=== PATIENT | male | born 1980 | race Caucasian/White ===

== ENCOUNTER 2018-09-30 12:41 | Emergency (ER) | payer OTHER ==
--- NOTE | 2018-09-30 13:03 | ED PDOC ---
Arrival/HPI - General Historian: Patient - History of Present Illness Narrative History of Present Illness (Text): 09/30/18 13:01 37 y/o male, no significant pmh, last tetanus under 6 years ago, nkda, c/o right nose bleeding on the rt. nostril started this morning. Pt. stated that he started to have nose bleeding after picking, been bleeding and admits swallow the blood, feel nauseous and been vomiting, not on antiplatete or anticoagulant, no fall or trauma, no pain, no numbness or tingling, no night sweat, no rash, no other medical or psychological complaints. Past Medical History - Provider Review Nursing Documentation Reviewed: Yes - Infectious Disease Hx of Infectious Diseases: None - Psychiatric Hx Substance Use: No - Anesthesia Hx Anesthesia: No Family/Social History - Physician Review Nursing Documentation Reviewed: Yes Family/Social History: Unknown Family HX Smoking Status: Current Some Days Smoker Hx Alcohol Use: Yes Hx Substance Use: No Allergies/Home Meds Allergies/Adverse Reactions: Allergies No Known Allergies Allergy (Verified 09/30/18 13:05) Review of Systems - Review of Systems Constitutional: absent: Fatigue, Fevers Eyes: absent: Vision Changes ENT: absent: Hearing Changes Respiratory: absent: SOB, Cough Cardiovascular: absent: Chest Pain Gastrointestinal: absent: Abdominal Pain, Nausea, Vomiting Skin: absent: Rash, Pruritis Neurological: absent: Headache, Dizziness Psychiatric: absent: Anxiety, Depression, Suicidal Ideation Physical Exam Vital Signs Reviewed: Yes Temperature: Afebrile Blood Pressure: Hypertensive Pulse: Tachycardic Respiratory Rate: Normal Appearance: Positive for: Well-Appearing, Non-Toxic, Comfortable Pain Distress: None Mental Status: Positive for: Alert and Oriented X 3 - Systems Exam Head: Present: Atraumatic, Normocephalic Pupils: Present: PERRL Extroacular Muscles: Present: EOMI Conjunctiva: Present: Normal Mouth: Present: Moist Mucous Membranes Nose (External): Present: Atraumatic. No: Abrasion, Contusion, Laceration Nose (Internal): Present: Normal Inspection, No Active Bleeding, Epistaxis (rt. nostril). No: Edematous, Rhinorrhea, Septal Deviation, Septal Hematoma Neck: Present: Normal Range of Motion. No: Meningeal Signs, MIDLINE TENDERNESS, Paraspinal Tenderness Respiratory/Chest: Present: Clear to Auscultation, Good Air Exchange. No: Respiratory Distress, Accessory Muscle Use Cardiovascular: Present: Regular Rate and Rhythm, Normal S1, S2. No: Murmurs Abdomen: No: Tenderness, Distention, Peritoneal Signs Back: Present: Normal Inspection Upper Extremity: Present: Normal Inspection. No: Cyanosis, Edema Lower Extremity: Present: Normal Inspection. No: Edema Neurological: Present: GCS=15, CN II-XII Intact, Speech Normal Skin: Present: Warm, Dry, Normal Color. No: Rashes Psychiatric: Present: Alert, Oriented x 3, Normal Insight, Normal Concentration Medical Decision Making ED Course and Treatment: 09/30/18 13:03 -Labs -nasal pressure -IVF/pepcid/zofran -Observe and reassess 09/30/18 13:28 -Pt. is still having persistent bleeding, no visible frontal bleeding but the blood is from posterior, will use rapid rhino. 09/30/18 13:40 -Rapid rhino inserted with 7.5cm for anterior/posterior packing, tolerated the procedure well and inflated the ballon to the standard requirement, bleeding resolved, feeling much better. 09/30/18 14:18 -Pt. is anxious, tachycardia and hypertensive, ativan 1mg and clonidine 0.1mg po ordered, no hand tremors or tongue fasciculation, no signs of withdrawal. 09/30/18 14:24 -Labs are non-significant except wbc 12.2 (afebrile, likely stress induced), K+ 3.3 (potassium chloride 20meq po ordered), Mg 1.5 (mgsulfate 2gm IV ordered), AST 198 and ALT 125 (chronic alcoholic), BUN 23 (fluid ordered). 09/30/18 16:11 -Pt. stated that he feels better, wants to go home and drink, stated that he feels well, doesn't need to be admitted, all the blood works and result explained to him, recommend that I would like to keep him due to the elevated BP and tachycardia, concerning for possible early alcohol withdrawal but he declined further evaluation, request to sign out against medical advice. AMA AMA ER The patient refuses to stay in the Emergency Room (ER) to continue the care and wishes to leave the emergency department against my medical advice. Patient was told that staying in the ER is necessary and a full explanation of the reasons why was given, and understood by the patient with alert and oriented x4. The risk of leaving were explained in laymans term and including but not limited to alcohol withdrawal, GI bleed, organ failure, cardiac arrhythmia, stroke, ischemia, pain, worsening of condition, permanent disability and from an undiagnosed or untreated condition. The patient accepts these risks, and is in my judgment is competent and capable of understanding the clinical situation and explanation of the risk of leaving. The patient is able to verbally repeated me back the above explained risks and benefits back to me, and verbally expressed understanding. Patient was given the opportunity to ask questions and change mind. The patient was instructed regarding the best care for the present symptoms, and to follow up as soon as possible with the primary care doctor including specialist or return to the emergency department at any time for continuing care. You sign out against medical advice. You are given motrin, augmentin, rapid rhino need to be removed on 48 hours to prevent infection, follow up with your own pmd and ENT/GI within 2 days, return to the ER for any new or worsening signs or symptoms. - PA / LOOM SETTER / Resident Statement / has reviewed & agrees with the documentation as recorded. Disposition/Present on Arrival - Present on Arrival Any Indicators Present on Arrival: No History of DVT/PE: No History of Uncontrolled Diabetes: No Urinary Catheter: No History of Decub. Ulcer: No History Surgical Site Infection Following: None - Disposition Have Diagnosis and Disposition been Completed?: Yes Diagnosis: Posterior epistaxis, Hypomagnesemia, Hypokalemia, Elevated liver enzymes, Non- compliance Disposition: AGAINST MEDICAL ADVICE Disposition Time: 16:13 Condition: GOOD Additional Instructions: You sign out against medical advice. You are given motrin, augmentin, rapid rhino need to be removed on 48 hours to prevent infection, follow up with your own pmd and ENT/GI within 2 days, return to the ER for any new or worsening signs or symptoms. Prescriptions: Amoxicillin/Clavulanate [Augmentin 875 MG-125 MG] 1 tab PO BID #14 tab Ibuprofen [Motrin] 600 mg PO QID PRN #30 tab PRN Reason: Other Referrals: Xander Nava DO [Staff Provider] - Follow up with primary [facility] at [facility] [Outside] - Follow up with primary Forms: WORK NOTE
[2018-09-30] MEDS ORDERED: Sodium Chloride 0.9% 1,000 ML IV STA (13:06)
[2018-09-30] MEDS ORDERED: Iodixanol 320 MG/ML 100 ML BOTTLE IV ONE ×2 (13:49)
[2018-09-30] MEDS ORDERED: Nitroglycerin 50mg in D5W 0 MG/0 ML BOTTLE IV ONE (13:49)
[2018-09-30 14:09] LABS: BASO # 0.03 K/mm3 (0.0-2.0); BASO % 0.2 % (0.0-3.0); EOS % 0.1 % (1.5-5.0); GRAN # 9.42 (1.4-6.5); GRAN % 77.5 % (50.0-68.0); HEMOGLOBIN 15.1 g/dL (14.0-18.0); LYMPH # 1.4 (1.2-3.4); LYMPH % 11.4 % (22.0-35.0); MEAN CELL VOLUME 91.1 fl (80.0-105.0); MEAN CORPUSCULAR HGB CONC 35.1 g/dl (31.0-37.0); MEAN PLATELET VOLUME 10.8 fl (7.0-11.0); MONO # 1.3 (0.1-0.6); MONO % 10.8 % (1.0-6.0); RBC 4.72 10^6/uL (3.5-6.1); RED CELL DISTRIBUTION WIDTH 12.6 % (11.5-14.5); WHITE BLOOD COUNT 12.2 10^3/uL (4.5-11.0)
[2018-09-30] MEDS ORDERED: Amoxicillin-Clav 875-125 mg Tab PO STA (14:16)
[2018-09-30 14:19] LABS: ALB/GLOB RATIO 1.2 (1.1-1.8); ALBUMIN 4.6 g/dL (3.0-4.8); ALT/SGPT 125 U/L (7-56); AST/SGOT 198 U/L (17-59); BLOOD UREA NITROGEN 23 mg/dL (7-21); CALCIUM 9.7 mg/dL (8.4-10.5); GFR NON-AFRICAN AMERICAN > 60; LIPASE 101 U/L (23-300)
[2018-09-30] MEDS ORDERED: Potassium Chloride 20 mEq ER Tab PO STA (14:22)
[2018-09-30] MEDS ORDERED: Magnesium Sulfate 2 gm/50 ml 2 GM/50 ML BAG IVPB ONE (14:22)
[2018-09-30 15:25] VITALS: BP 181/116; PULSE 128; RESP 18; TEMP 98; O2SAT 99
== END 2018-09-30 16:22 | disposition left against medical advice (07) ==
LOC: ED 12:41
DX: R04.0 Epistaxis (principal); E83.42 Hypomagnesemia; E87.6 Hypokalemia; R74.8 Abnormal levels of other serum enzymes; Z91.14 Patient's other noncompliance with medication regimen
CPT/HCPCS: 30901; 80053; 83690; 83735; 85025; 96361; 96365; 96375; 99284; J2060; J2405; J7030

== ENCOUNTER 2018-10-02 08:07 | Emergency (ER) | payer OTHER ==
[2018-10-02 08:24] VITALS: BMI 32.4
[2018-10-02 08:28] VITALS: BP 130/89
[2018-10-02] MEDS ORDERED: Amoxicillin-Clav 875-125 mg Tab PO STA (08:42)
--- NOTE | 2018-10-02 08:45 | ED PDOC ---
Arrival/HPI - General Chief Complaint: ENT Problem Time Seen by Provider: 10/02/18 08:23 Historian: Patient - History of Present Illness Narrative History of Present Illness (Text): 10/02/18 08:43 A 37 year old male, with no significant past medical history, presents to the emergency department for the removal of the rapid rhino placed 2 days ago. Patient states that he was seen in the emergency department for an episode of e pistaxis 2 days ago. He notes that he had woken up from bed to go to work when the bleeding began. The patient notes that he has not been taking the medications he was prescribed during his last visit. The patient denies fevers, chills, headache, dizziness, chest pain, shortness of breath, dyspnea on exertion, cough, abdominal pain, nausea, vomiting, diarrhea, back pain, neck pain, urinary/bowel changes, or any other complaint. Time/Duration: Other (2 days ago) Symptom Onset: Sudden Symptom Course: Unchanged Activities at Onset: Rest, Light Context: Home Past Medical History - Provider Review Nursing Documentation Reviewed: Yes - Infectious Disease Hx of Infectious Diseases: None - Psychiatric Hx Substance Use: No - Anesthesia Hx Anesthesia: No Family/Social History - Physician Review Nursing Documentation Reviewed: Yes Family/Social History: No Known Family HX Smoking Status: Current Some Days Smoker Hx Alcohol Use: Yes Hx Substance Use: No Allergies/Home Meds Allergies/Adverse Reactions: Allergies No Known Allergies Allergy (Verified 10/02/18 08:24) Review of Systems - Physician Review All systems were reviewed & negative as marked: Yes - Review of Systems Constitutional: absent: Fevers ENT: Other (Removal of Rapid Rhino.) Respiratory: absent: SOB, Cough Cardiovascular: absent: Chest Pain, BOOKER Gastrointestinal: absent: Abdominal Pain, Stool Changes, Diarrhea, Nausea, Vomiting Genitourinary Male: absent: Urinary Output Changes Musculoskeletal: absent: Back Pain, Neck Pain Neurological: absent: Headache, Dizziness Physical Exam Vital Signs Reviewed: Yes Vital Signs Temp Pulse Resp BP Pulse Ox 10/02/18 08:25 98.4 F 78 19 130/89 98 Temperature: Afebrile Blood Pressure: Normal Pulse: Regular Respiratory Rate: Normal Appearance: Positive for: Well-Appearing, Non-Toxic, Comfortable Pain Distress: None Mental Status: Positive for: Alert and Oriented X 3 - Systems Exam Head: Present: Atraumatic, Normocephalic Pupils: Present: PERRL Extroacular Muscles: Present: EOMI Conjunctiva: Present: Normal Mouth: Present: Moist Mucous Membranes Nose (Internal): Present: Other (Bright red blood in right nare.). No: No Active Bleeding Neck: Present: Normal Range of Motion Respiratory/Chest: Present: Clear to Auscultation, Good Air Exchange. No: Respiratory Distress, Accessory Muscle Use Cardiovascular: Present: Regular Rate and Rhythm, Normal S1, S2. No: Murmurs Abdomen: No: Tenderness, Distention, Peritoneal Signs Back: Present: Normal Inspection Upper Extremity: Present: Normal Inspection. No: Cyanosis, Edema Lower Extremity: Present: Normal Inspection. No: Edema Neurological: Present: GCS=15, CN II-XII Intact, Speech Normal Skin: Present: Warm, Dry, Normal Color. No: Rashes Psychiatric: Present: Alert, Oriented x 3, Normal Insight, Normal Concentration Medical Decision Making ED Course and Treatment: 10/02/18 08:47 Impression: A 37 year old male presents to the emergency department for the removal of the Rapid Rhino inserted 2 days ago. Differential Diagnosis included but are not limited to: Plan: -- Augmentin -- Reassess and disposition Prior Visits: Notes and results from previous visits were reviewed. Patient was last seen in the emergency department on 09/30/18 for a complaint of epistaxis from the right nare. Rapid rhino was inserted. Patient discharged against medical advice. Progress Notes: 10/02/18 08:50: Rapid rhino was removed from right nare. Will reevaluate patient. 10/02/18 09:40: On reevaluation, patient is no longer bleeding. No posterior active bleeding. No septal hematoma. Patient to follow- up with ENT doctor as scheduled. He will be going there today to be evaluated. Patient was instructed to start taking his antibiotic. Patient in agreement with plan to be discharged home. Patient is stable for discharge. Patient was instructed to follow up with physician or return if symptoms worsen or new concerning symptoms arise. - Scribe Statement The provider has reviewed the documentation as recorded by the Katiibe Sonam Martin Provider Scribe Attestation: All medical record entries made by the Scribe were at my direction and personally dictated by me. I have reviewed the chart and agree that the record accurately reflects my personal performance of the history, physical exam, medical decision making, and the department course for this patient. I have also personally directed, reviewed, and agree with the discharge instructions and disposition. Disposition/Present on Arrival - Present on Arrival Any Indicators Present on Arrival: No History of DVT/PE: No History of Uncontrolled Diabetes: No Urinary Catheter: No History of Decub. Ulcer: No History Surgical Site Infection Following: None - Disposition Have Diagnosis and Disposition been Completed?: Yes Diagnosis: Epistaxis Disposition: HOME/ ROUTINE Disposition Time: 09:40 Patient Plan: Discharge Condition: IMPROVED Discharge Instructions (ExitCare): Nosebleeds Additional Instructions: DUONG MÉNDEZ, thank you for letting us take care of you today. Your provider was Javier Benson DO and you were treated for Nose Bleed. The emergency medical care you received today was directed at your acute symptoms. If you were prescribed any medication, please fill it and take as directed. It may take several days for your symptoms to resolve. Return to the Emergency Department if your symptoms worsen, do not improve, or if you have any other problems. Make sure to follow up with ENT physician, Dr. Nava. Please contact your doctor or call one of the physicians/clinics you have been referred to that are listed on the Patient Visit Information form that is included in your discharge packet. Bring any paperwork you were given at discharge with you along with any medications you are taking to your follow up visit. Our treatment cannot replace ongoing medical care by a primary care provider outside of the emergency department. Thank you for allowing the [facility] team to be part of your care today. If you had an X-Ray or CT scan: A Radiologist will review the ED reading if any change in treatment is needed we will contact you. If you had a blood, urine, or wound culture: It will take several days for the results, if any change in treatment is needed we will contact you. If you had an STI test: It will take 48 hours for the results. Please call after 1 week if you have not heard back. Referrals: [facility] [Outside] - Follow up with primary Xander Nava DO [Staff Provider] - Follow up with primary Forms: [employer] (Swiss), WORK NOTE
[2018-10-02 10:15] VITALS: PULSE 85; RESP 18; TEMP 98; O2SAT 97
== END 2018-10-02 09:38 | disposition home or self-care (01) ==
LOC: ED 08:07
DX: R04.0 Epistaxis (principal)

== ENCOUNTER 2019-02-22 16:19 | Emergency (ER) | payer OTHER ==
[2019-02-22 16:20] VITALS: BMI 32.4
[2019-02-22 16:55] VITALS: RESP 18; TEMP 98.3
--- NOTE | 2019-02-22 17:29 | ED PDOC ---
Arrival/HPI - General Chief Complaint: ENT Problem Time Seen by Provider: 02/22/19 16:58 - History of Present Illness Narrative History of Present Illness (Text): 02/22/19 17:30 02/22/19 17:08 38 m with hx alcohol dependence presents to the ED to have left nasal packing removed. Patient was seen in this ED (by me). Patient states there was no discomfort at time of discharge and only scant bleeding. Patient states he filled the antibiotics and has been taking them. Patient denies any issues since last time in the ED. Past Medical History - Infectious Disease Hx of Infectious Diseases: None - Cardiac Hx Cardiac Disorders: No - Psychiatric Hx Substance Use: No - Anesthesia Hx Anesthesia: No Family/Social History Family/Social History: No Known Family HX Smoking Status: Current Some Days Smoker Hx Alcohol Use: Yes Hx Substance Use: No Allergies/Home Meds Allergies/Adverse Reactions: Allergies No Known Allergies Allergy (Verified 02/22/19 16:51) Review of Systems - Physician Review All systems were reviewed & negative as marked: Yes Physical Exam - Physical Exam Narrative Physical Exam (Text): 02/22/19 17:30 Gen: VS reviewed, alert, well developed, well nourished, nontoxic, mild distress Eye: EOMI, PERRL ENT: nasal packing in the left nostril Neck: no JVD, supple, no adenopathy Skin: good color, no rash, no cyanosis Psych: responds appropriately to questions, normal affect Neuro: oriented x3, CN2-12 intact grossly, motor intact, sensation intact 02/22/19 17:32 Vital Signs Temp Pulse Resp BP Pulse Ox 02/22/19 16:47 98.3 F 98 H 18 144/97 H 97 Medical Decision Making ED Course and Treatment: 02/22/19 17:27 Procedure: the left nasal packing was deflated and gently removed by myself. tolerated procedure well, no bleeding. patient seen for removal of nasal packing which was placed for anterior epistaxis. packing removed successfully, no bleeding,very mild escoriated mucosum noted but no active bleeding. patient was given measures for protection. 02/22/19 17:33 Disposition/Present on Arrival - Present on Arrival Any Indicators Present on Arrival: No History of DVT/PE: No History of Uncontrolled Diabetes: No Urinary Catheter: No History of Decub. Ulcer: No History Surgical Site Infection Following: None - Disposition Have Diagnosis and Disposition been Completed?: Yes Diagnosis: Nosebleed Disposition: HOME/ ROUTINE Disposition Time: 17:29 Patient Plan: Discharge Patient Problems: Current Active Problems Problem Status Onset Nosebleed Acute Condition: STABLE Discharge Instructions (ExitCare): Nosebleeds Print Language: SALVADOREAN Additional Instructions: follow up with a primary care doctor to have your high blood pressure checked. Referrals: PCP,NO [Primary Care Provider] - Follow up with primary Eunice Ace MD [Medical Doctor] - Follow up with primary Forms: [employer] (Albanian)
[2019-02-22 17:55] VITALS: BP 149/88; PULSE 78; O2SAT 99
== END 2019-02-22 18:07 | disposition home or self-care (01) ==
LOC: ED 16:19
DX: R04.0 Epistaxis (principal)